=== PATIENT | female | born 1985 | race Caucasian/White ===

== ENCOUNTER 2018-07-02 11:00 | Emergency (ER) | payer BC, MEDICAID ==
[2018-07-02] MEDS: HYDROCODONE/APAP (10/325) TAB PO (12:56)
[2018-07-02] MEDS: ONDANSETRON (ODT) 4 MG TAB ODT (12:56)
[2018-07-02 13:09] LABS: URINE BLOOD (Dip) POC Trace-intact (NEGATIVE); URINE GLUCOSE (Dip) POC Negative (NEGATIVE); URINE KETONES (Dip) POC Negative (NEGATIVE); URINE LEUKOCYTE EST (Dip) POC 2+ (NEGATIVE); URINE NITRITE (Dip) POC Negative (NEGATIVE); URINE TOTAL PROTEIN POC 1+ (NEGATIVE)
[2018-07-02] MEDS: KETOROLAC 60 MG INJ IM (13:16)
== END 2018-07-02 14:19 | disposition home or self-care (01) ==
LOC: FTE 11:00
DX: S39.92XA Unspecified injury of lower back, initial encounter (principal); X50.0XXA Overexertion from strenuous movement or load, initial encounter; Y92.9 Unspecified place or not applicable
CPT/HCPCS: 72100; 81003; 81025; 96372; 99284-25